=== PATIENT | male | born 1955 | race African-American/Black ===

== ENCOUNTER 2017-08-30 09:37 | Day surgery (SDC) | payer OTHER, MEDICAID ==
[~2017-08-30] VITALS: Ht 185.4 cm; Wt 130.8 kg
[2017-08-30 10:00] VITALS: BP 144/75; PULSE 65; RESP 17; O2SAT 97
[2017-08-30] MEDS ORDERED: SODIUM CHLORIDE 0.9% FLUSH 10 ML FLUSH IV FLUSH PRN ×2 (10:15)
[2017-08-30] MEDS ORDERED: SODIUM BICARBONATE 100 MEQ in D5W 1000 ML IV SCH (10:15)
[2017-08-30] MEDS ORDERED: PRIM50 PO (10:48)
[2017-08-30] MEDS ORDERED: CLAR10CA3 PO (10:48)
[2017-08-30] MEDS ORDERED: TOPI100 PO (10:48)
[2017-08-30] MEDS ORDERED: TRAZ100T10 PO (10:48)
[2017-08-30] MEDS ORDERED: ASPI-516 CHEW (10:48)
[2017-08-30] MEDS ORDERED: LYRI50CA PO (10:48)
[2017-08-30] MEDS ORDERED: ALLO100T PO (10:48)
[2017-08-30] MEDS ORDERED: GABA300C5 PO (10:48)
[2017-08-30] MEDS ORDERED: TIOT1AER INH (10:48)
[2017-08-30] MEDS ORDERED: PRED5TAB PO (10:48)
[2017-08-30] MEDS ORDERED: ALBUAER3 INH (10:48)
[2017-08-30] MEDS ORDERED: METF1000 PO (10:48)
[2017-08-30] MEDS ORDERED: FLUT1SPR5 EACH NARE (10:48)
[2017-08-30] MEDS ORDERED: VITA1000 PO (10:48)
[2017-08-30] MEDS ORDERED: CYAN1TAB21 SL (10:48)
--- NOTE | 2017-08-30 11:31 | HHI.HP ---
History of Present Illness Chief Complaint: L>R leg swelling and heaviness History of Present Illness 62 yo male with L>R leg swelling and heaviness. Tried compression. No history of DVT. Duplex shows focal thigh venous insufficiency. Past/Family/Social History Past Medical History OA DM HTN Past Surgical History appy Social History nonsmoker Family History NC Home Medications Reported Medications Cholecalciferol (Vitamin D-1000) 1,000 Unit Tab, 2000 UNITS PO DAILY for Nutritional Supplement, #1 BOTTLE 0 Refills 08/30/17 Cyanocobalamin Odt (Vitamin B-12 Odt) 5,000 Mcg Tab, 2500 MCG SL DAILY for Nutritional Supplement, TAB 0 Refills 08/30/17 Trazodone (Trazodone) 100 Mg Tablet, 100 MG PO HS for Control Depression, #30 TAB 0 Refills 08/30/17 Topiramate (Topamax) 100 Mg Tab, 100 MG PO BID for Control Seizures, #60 TAB 0 Refills 08/30/17 Tiotropium-Olodaterol Inh (Stiolto Respimat Inh) 2.5-2.5 Mcg/Act Aero, 2 PUFF INH DAILY for COPD, #1 INHALER 0 Refills 08/30/17 Primidone (Mysoline) 50 Mg Tab, 100 MG PO QID for Control Seizures, #180 TAB 0 Refills 08/30/17 Pregabalin (Lyrica) 50 Mg Cap, 50 MG PO TID, #90 CAP 0 Refills 18 Prednisone (Prednisone) 5 Mg Tab, 5 MG PO BID Y for NEUROPATHY, TAB 0 Refills 08/30/17 Metformin (Metformin) 1,000 Mg Tab, 1000 MG PO BIDPC for Blood Sugar Management , #60 TAB 0 Refills 08/30/17 Loratadine (Claritin) 10 Mg Cap, 10 MG PO DAILY for Allergy Management, CAP 0 Refills 08/30/17 Gabapentin (Gabapentin) 300 Mg Cap, 300 MG PO TID, #90 CAP 0 Refills 18 Fluticasone Nasal [place] (Flonase Nasal [place]) 50 Mcg/Act [place], 1 SPR EACH NARE DAILY for Allergies, #1 BOTTLE 0 Refills 08/30/17 Aspirin (Aspirin) 81 Mg Chew, 81 MG CHEW DAILY, TAB 0 Refills 08/30/17 Allopurinol (Allopurinol) 100 Mg Tab, 100 MG PO DAILY for Gout, #30 TAB 0 Refills 08/30/17 Albuterol 8.5 GM Inh (Proair Hfa 8.5 GM Inh) 90 Mcg/Act Aer, 1 PUFF INH Q6HR Y for SHORTNESS OF BREATH, #1 INHALER 0 Refills 108 mcg/actuation 08/30/17 Coded Allergies: clonazepam (Verified Allergy, Severe, 08/30/17) lisinopril (Verified Allergy, Severe, 08/30/17) Review of Systems Constitutional: DENIES: Diaphoretic episodes, Fatigue, Fever, Weight gain, Weight loss, Chills, Dizziness, Change in appetite, Night Sweats Physical Exam Vitals/I&O Date Time Temp Pulse Resp B/P (MAP) Pulse Ox O2 Delivery O2 Flow Rate FiO2 08/30/17 10:00 65 17 144/75 (98) 97 Neuro: alert, oriented, no distress HEENT: NC/AT Neck: no JVD Heart: reg rate Lungs: clear Extremities: LEFT leg without rashes Caprini VTE Risk Assessment Caprini VTE Risk Assessment: No/Low Risk (score <= 1) Caprini Risk Assessment Model Point Value = 1 Point Value = 2 Point Value = 3 Point Value = 5 Age 41-60 Minor surgery BMI > 25 kg/m2 Swollen legs Varicose veins or History of unexplained or recurrent spontaneous Oral contraceptives or hormone replacement Sepsis (< 1 month) Serious lung disease, including pneumonia (< 1 month) Abnormal pulmonary function Acute myocardial infarction Congestive heart failure (< 1 month) History of inflammatory bowel disease Medical patient at bed rest Age 61-74 Arthroscopic surgery Major open surgery (> 45 min) Laparoscopic surgery (> 45 min) Malignancy Confined to bed (> 72 hours) Immobilizing plaster cast Central venous access Age >= 75 History of VTE Family history of VTE Factor V Leiden Prothrombin [id number] Lupus anticoagulant Anticardiolipin antibodies Elevated serum homocysteine Heparin-induced thrombocytopenia Other congenital or acquired thrombophilia Stroke (< 1 month) Elective arthroplasty Hip, pelvis, or leg fracture Acute spinal cord injury (< 1 month) Prophylaxis Regimen Total Risk Factor Score Risk Level Prophylaxis Regimen 0-1 Low Early ambulation 2 Moderate Order ONE of the following: *Sequential Compression Device (SCD) *Heparin 5000 units SQ BID 3-4 Higher Order ONE of the following medications: *Heparin 5000 units SQ TID *Enoxaparin/Lovenox 40 mg SQ daily (WT < 150 kg, CrCl > 30 mL/min) *Enoxaparin/Lovenox 30 mg SQ daily (WT < 150 kg, CrCl > 10-29 mL/min) *Enoxaparin/Lovenox 30 mg SQ BID (WT < 150 kg, CrCl > 30 mL/min) AND/OR *Sequential Compression Device (SCD) 5 or more Highest Order ONE of the following medications: *Heparin 5000 units SQ TID (Preferred with Epidurals) *Enoxaparin/Lovenox 40 mg SQ daily (WT < 150 kg, CrCl > 30 mL/min) *Enoxaparin/Lovenox 30 mg SQ daily (WT < 150 kg, CrCl > 10-29 mL/min) *Enoxaparin/Lovenox 30 mg SQ BID (WT < 150 kg, CrCl > 30 mL/min) AND *Sequential Compression Device (SCD) Assessment and Plan Plan L LE venous insufficiency Plan for LEFT GSV RFA Discharge Planning D/C later today Ru Jewell MD August 30, 2017 11:31
[2017-08-30] MEDS ORDERED: MIDAZOLAM HCL 2 MG/2 ML VIAL ONE (11:53)
[2017-08-30] MEDS ORDERED: LIDOCAINE HCL 1% PF 30 ML VIAL ONE (11:54)
[2017-08-30] MEDS ORDERED: SODIUM BICARBONATE 8.4% INJ 50 ML ONE (11:59)
[2017-08-30] MEDS ORDERED: LIDOCAINE 2%/EPINEPHrine 1:100,000 50ML MDV ONE (11:59)
[2017-08-30] MEDS ORDERED: ceFAZolin INJ 1,000 MG VIAL ONE (12:03)
--- NOTE | 2017-08-30 12:22 | CATHPROC ---
[email or web address] HIS Report Study Information Scheduled Start Study Start 08/30/2017 Aug 30 2017 11:42AM Referring Institution Admit Source Facility Department 1 Other [facility] - [facility] Physician and Clinical Staff Initial Ru Stapleton Stem Setter Irlanda Pollard,GAIL Recorder Ramírez Ny,RT(R) Scrub Melvin KnowlesRT(R) Equipment Time Midlevel Provider Description Size Mfg Part Number Used/Scraped CATHETER, FR7 CLOSURE FAST [id number] 11:44 BUNDLE-MEDTRONIC 100CM Used RFA 100CM *[id number] 11:44 BUNDLE-MEDTRONIC PACK, COMPUTED TOMOGRAPHY TECHNICIAN CLOSUREFAST CFP *[id number] Used SHEATH, FR7 CLOSURE FAST [id number] 11:44 BUNDLE-MEDTRONIC 7CM Used MICROINTRODUCER *[id number] KIT, CLOSURE FAST TUMESCENT 11:44 MEDTRONIC TIK-01 *[id number] Used INFILTRATION History: Allergies Allergy Reaction lisinopril clonazepam History: Stress Tests Stress or Imaging Studies Performed No Labs CPK-MB (ng/ML) 0.50-3.60 Not Drawn Medication Medication Total Dose (Bolus/Oral) Medication Total Dosage/Unit 1% XYLOCAINE 5 mL FENTANYL 100 mcg VERSED 3 mg Medications (Bolus/Oral) Medication Time Given Dosage/Unit Administered By Reason VERSED 08/30/2017 12:01:45 PM 1 mg Hellen Pollardnifer 1 mg VERSED given in lab by Irlanda Pollard, GAIL via Peripheral IV. Ordered by Ru Jewell. FENTANYL 08/30/2017 12:02:58 PM 25 mcg Irlanda Pollard 25 mcg FENTANYL given in lab by Irlanda Pollard, GAIL via Peripheral IV. Ordered by Ru Jewell. 1% XYLOCAINE 08/30/2017 12:04:14 PM 5 mL Ru Jewell 5 mL 1% XYLOCAINE given in lab by Ru Jewell Left Lower Leg via Subcutaneous. VERSED 08/30/2017 12:06:12 PM 1 mg Hellen Pollardnifer 1 mg VERSED given in lab by Irlanda Pollard, GAIL via Peripheral IV. Ordered by Ru Jewell. FENTANYL 08/30/2017 12:07:25 PM 50 mcg Irlanda Pollard 50 mcg FENTANYL given in lab by Irlanda Pollard, GAIL via Peripheral IV. Ordered by Ru Jewell. VERSED 08/30/2017 12:10:03 PM 1 mg Irlanda Pollard 1 mg VERSED given in lab by Irlanda Pollard RN via Peripheral IV. Ordered by Ru Jewell. FENTANYL 08/30/2017 12:11:10 PM 25 mcg Irlanda Pollard 25 mcg FENTANYL given in lab by Irlanda Pollard RN via Peripheral IV. Ordered by Ru Jewell. Medication (Drip) Medication Time Given Dosage/Unit Concentration/Unit Diluent (ml) Solution ANCEF 08/30/2017 12:05:47 PM 2 g 2 g ANCEF given in lab by Irlanda Pollard RN via Peripheral IV. Ordered by Ru Jewell. IV Solutions 08/30/2017 11:47:00 AM 0 mL (IV) 500 NaCl .9 IV Solutions given in lab by Irlanda Pollard RN in Left Antecubital via Peripheral IV. Pump/Drip Rebel w = 200 ml/hr using NaCl .9. Initial Case Assessment Cardiovascular HR Rhythm NIBP Chest Pain 72 Sinus 78/60 0 Edema Present Skin color Skin None Normal Warm Dry Neurological State Oriented to time-place- Alert Moves all extremities person Respiration - General Respiration Rate SpO2 (%) O2 (lpm) (B/min) 12 95 2 Chronological Log Time Study Chronological Log 11:41:54 MD arrived. 11:45:25 Patient arrived via Bed. 11:45:26 Patient Name, D.O.B, / Armband Verified By R.N. 11:45:27 Consent signed by the physician and the patient and verified by the [facility] staff. 11:45:28 Pre-op and post- op instructions given; patient acknowledges understanding of instructions. 11:45:29 Verbal Stimulation=2 Physical Stimulation=2 Airway=2 Respiration=2 TOTAL=8. (0=absent, 1=li mited, 2=present) 11:46:03 Patient has been NPO for More than 6Hrs. 11:46:04 Skin Breakdown- none per patient. 11:46:18 A # 20 IV was noted in the Antecubital (left). Grade = 0 IV Solutions given in lab by Irlanda Pollard RN in Left Antecubital via Peripheral IV. Pump/Dr ip Flow = 200 ml/hr 11:47:00 using NaCl .9. 11:47:21 History and physical on the chart or being dictated. Assessment: Initial Case, HR=72 BPM, Rhythm=Sinus, NIBP=78/60 mmhg, Chest Pain=0, Edema=None, Color=Normal, Skin = Warm, Dry 11:47:22 Neurological: State=Alert, Ox3, DUGAN Respiration: Resp=12 B/min, SpO2=95 %, O2=2 lpm Vitals capture started with the following parameters, Patient=Adult, Interval=5 min, Initial Pr anoyjj=987 mmHg, 11:49:11 Deflation Rate=5 mmHg, Cuff placed on Right Ankle 11:50:03 NIBP=78/60 mmhg, SpO2=98.0 %, Pain=0, Maryse=10, Hernandez=2 11:51:06 Left Leg prepped with 2% chlorhexidine, and draped after a 3 min. waiting time. 11:52:18 NIBP STAT measurement started. 11:52:42 HR=69 bpm, NIBP=93/77 mmhg, SpO2=98.0 %, Resp=36 B/min, Hernandez=2 11:55:18 HR=61 bpm, MFHX=835/73 mmhg, SpO2=98.0 %, Resp=20 B/min, Hernandez=2 Time Out. Correct patient, correct procedure, correct physician, power injector loaded, or not loaded with contrast with 11:58:28 surgical team present. Time Out Concurred by MD and individual staff in procedure. 11:59:34 Case Start 11:59:38 Ablation procedure started on patients left leg by Dr. Jewell. 11:59:52 HR=58 bpm, OCEB=836/69 mmhg, SpO2=98.0 %, Resp=17 B/min 12:01:45 1 mg VERSED given in lab by Irlanda Pollard, GAIL via Peripheral IV. Ordered by Alex Jewell 12:02:58 25 mcg FENTANYL given in lab by Irlanda Pollard, RN via Peripheral IV. Ordered by Yolie Jewell 12:03:49 Reference ECG taken 12:04:14 5 mL 1% XYLOCAINE given in lab by Ru Jewell Left Lower Leg via Subcutaneous. 12:04:38 Access site was Venous access left lower leg.No Arterial Access. 12:04:49 HR=59 bpm, TWOM=126/71 mmhg, SpO2=98.0 %, Resp=15 B/min, Hernandez=2 A SHEATH, FR7 CLOSURE FAST MICROINTRODUCER 7CM was advanced into the Left Leg (lower) using the 12:05:09 Percutaneous technique. 12:05:47 2 g ANCEF given in lab by Irlanda Pollard, GAIL via Peripheral IV. Ordered by Robert. Best 12:06:12 1 mg VERSED given in lab by Irlanda Pollard, GAIL via Peripheral IV. Ordered by Alex Jewell 12:07:25 50 mcg FENTANYL given in lab by Irlanda Pollard, GAIL via Peripheral IV. Ordered by Yolie Jewell 12:09:50 HR=61 bpm, OJUC=463/73 mmhg, SpO2=98.0 %, Resp=16 B/min, Hernandez=2 12:10:03 1 mg VERSED given in lab by Irlanda Pollard RN via Peripheral IV. Ordered by Alex Jewell 12:10:19 Ablation started Left lower leg. 12:11:10 25 mcg FENTANYL given in lab by Irlanda Pollard RN via Peripheral IV. Ordered by Yolie Jewell 12:14:54 HR=64 bpm, HBHJ=288/62 mmhg, SpO2=95.0 %, Resp=10 B/min, Hernandez=2 12:17:05 Case End Sheath removed. Pressure held Left Lower leg. 12:17:07 12:19:53 HR=62 bpm, ICJB=142/65 mmhg, SpO2=97.0 %, Resp=11 B/min, Hernandez=2 12:20:57 Left Leg wrapped in Yosvany bandages. 12:21:16 Patient returned to DOCU in stable condition. End Study - Contrast Media Used In Study Contrast Total Opened (mL) Total Used (mL) Total Wasted (mL) Omnipaque 0 0 0 End Study - Radiation Exposure Fluoro Time (minutes) 0.0 End Study - Patient Disposition Complications Transferred To No Telemetry Bed
--- NOTE | 2017-08-30 12:27 | HHI.PR ---
cc: Ru Jewell MD Immediate Post Op Note Procedure Date: August 30, 2017 Pre Op Diagnosis: L LE venous insufficiency Post Op Diagnosis: L LE venous insufficiency Surgeon: Ru Jewell Refrigeration Service Technician(s): none Procedure: L GSV RFA Findings: successful ablation, no DVT Complications: none Specimen(s) removed: none Estimated blood loss: 10mL Anesthesia: MAC Drains: None Fluids: 300mL IVF Patient to: Other (DOCU) Patient Condition: Good Implant/Devices: SEE IMPLANT LOG (if applicable) Date/Time of Procedure: SEE SURGICAL CARE RECORD Ru Jewell MD August 30, 2017 12:27
--- NOTE | 2017-08-30 14:44 | MP ---
cc: Ru Jewell MD DATE OF OPERATION: 08/30/2017 PREOPERATIVE DIAGNOSIS: Left lower extremity venous insufficiency. POSTOPERATIVE DIAGNOSIS: Left lower extremity venous insufficiency. PROCEDURE PERFORMED: Left great saphenous vein radiofrequency ablation. ATTENDING SURGEON: Ru Jewell MD ANESTHESIA: Local with sedation. INDICATIONS: Mr. Hull is a 62-year-old gentleman with a left lower extremity venous insufficiency and he is refractory to compression therapy. He was taken to the operating room for a truncal ablation of his great saphenous vein. DESCRIPTION OF PROCEDURE: Informed consent was obtained from the patient. He was taken to the operating room and placed supine on the operating table. An appropriate timeout was taken to ensure the patient's identity, the operative site and planned procedure. Administration of 2 grams of Ancef was initiated prior to skin incision and will be discontinued after a single preoperative dose. Everyone in the room agreed with timeout and we proceeded. With the patient in reverse Trendelenburg position, the entire left leg was prepped and draped and using ultrasound-guided access after infiltration of lidocaine, a 21-gauge micropuncture needle was used to access the mid calf, left great saphenous vein. This was exchanged using Seldinger technique for a 7-[place] sheath through which a venous ClosureFast catheter was introduced. The catheter was advanced to approximately 3-4 cm from the saphenofemoral junction. The patient was then placed in Trendelenburg position and the entire saphenous vein was anesthetized with perisaphenous tumescence. The vein was ablated. The catheter was segmentally withdrawn and the sheath and catheters were removed. Pressure was held for hemostasis. At the completion of the ablation, there was no evidence of DVT. The leg was wrapped in Yosvany bandage. The patient was transported to the recovery room in stable condition. There were no complications. I was present and scrubbed and performed the entire procedure. Ru Jewell MD RJF/TL , 02:23 PM , 02:43 PM
== END 2017-08-30 14:48 | disposition home or self-care (01) ==
LOC: HDOC 09:37 → HDIC 09:37 → HDOC 14:48
PROVIDERS: ATTEND Surgery
DX: I87.2 Venous insufficiency (chronic) (peripheral) (principal); E11.9 Type 2 diabetes mellitus without complications; I10 Essential (primary) hypertension; R56.9 Unspecified convulsions; Z79.84 Long term (current) use of oral hypoglycemic drugs; Z79.82 Long term (current) use of aspirin
CPT/HCPCS: 36475; 99152; J0690; J2250; J3010